=== PATIENT | male | born 1995 | race Caucasian/White ===

== ENCOUNTER 2017-04-14 13:13 | Emergency (ER) | payer MEDICAID, OTHER ==
[~2017-04-14] VITALS: Ht 167.6 cm; Wt 59.5 kg
[2017-04-14 13:50] VITALS: BP 129/77
--- NOTE | 2017-04-14 16:03 | NUR ---
PATIENT CALLED FROM [facility] NO ANSWER PATIENT IS LWBS.
== END 2017-04-14 16:00 | disposition left against medical advice (07) ==
LOC: MED 13:13
DX: H57.11 Ocular pain, right eye (principal); Z53.21 Procedure and treatment not carried out due to patient leaving prior to being seen by health care provider